=== PATIENT | female | born 1985 | race African-American/Black ===

== ENCOUNTER 2016-09-04 10:11 | Outpatient (CLI) | payer BC | END 2016-09-04 20:46 | disposition home or self-care (01) | LOC: SRD 10:11 | PROVIDERS: ATTEND Otolaryngology | DX: Z01.818 Encounter for other preprocedural examination (principal); Z87.09 Personal history of other diseases of the respiratory system | CPT/HCPCS: 71010 ==

== ENCOUNTER 2017-02-05 14:20 | Outpatient (CLI) | payer BC | END 2017-02-05 21:22 | disposition home or self-care (01) | LOC: SRD 14:20 | PROVIDERS: ATTEND Otolaryngology | DX: Z01.818 Encounter for other preprocedural examination (principal); Q18.1 Preauricular sinus and cyst; R05 Cough | CPT/HCPCS: 71020-TC ==